=== PATIENT | male | born 1940 | race African-American/Black ===

== ENCOUNTER → 2017-02-11 | Outpatient (CLI) | payer MEDICARE, OTHER ==
[~2017-02-11] MED LIST: ASPERDRINK81 MG PO; ASPIRIN 81M81 MG/TA2 PO; CORDARONE200 MG/TAB PO; COUMADIN5 MG PO; ELIQUIS 5MG PO; KLOR-CON M2020 MEQ PO; LASIX 40MG TABL40 MG PO; LEVAQUIN 750MG750 MG PO; LEVOXYL0.05 MG PO; LIPITOR 40MG TA40 MG PO; LOPRESSOR 225 MG/TAB PO; LOPRESSOR 550 MG/TAB PO; MULTAQ400 MG PO; NITROSTAT0.4 MG/TAB SL; PERCOCET 325 MG1 TA2 PO; PLAVIX 75MG TAB75 MG PO; PRINIVIL10 MG PO; PRINIVIL2.5 MG PO; ULTRAM 50MG TAB50 MG PO
== END ==
LOC: COL.VAS 10:53
DX: I34.0 Nonrheumatic mitral (valve) insufficiency (principal); I38 Endocarditis, valve unspecified; I28.8 Other diseases of pulmonary vessels; I25.10 Atherosclerotic heart disease of native coronary artery without angina pectoris

== ENCOUNTER → 2017-02-17 | Outpatient (CLI) | payer MEDICARE, OTHER | LOC: COL.RAD 13:11 | DX: I51.7 Cardiomegaly (principal); J90 Pleural effusion, not elsewhere classified; Z95.1 Presence of aortocoronary bypass graft | CPT/HCPCS: Q9967 ==

== ENCOUNTER → 2017-03-07 | Outpatient (CLI) | payer MEDICARE, OTHER | LOC: COL.PUL 09:47 | DX: Z51.81 Encounter for therapeutic drug level monitoring (principal); R06.02 Shortness of breath ==

== ENCOUNTER 2017-03-20 07:58 | Day surgery (SDC) | payer MEDICARE, OTHER ==
[~2017-03-20] VITALS: Ht 180.3 cm; Wt 79.5 kg
[2017-03-20] VITALS (14 sets, daily range): BP systolic 116–147; BP diastolic 62–77; PULSE 64–73; TEMP 97.3–98.1
[~2017-03-20 07:58] MED LIST changes: -CORDARONE200 MG/TAB PO; -LEVOXYL0.05 MG PO; -PLAVIX 75MG TAB75 MG PO; -PRINIVIL10 MG PO
[2017-03-20] MEDS ORDERED: CORDARONE200 MG/TAB PO (08:15)
[2017-03-20] MEDS ORDERED: PRINIVIL10 MG PO (08:18)
[2017-03-20] MEDS ORDERED: LEVOXYL0.05 MG PO (08:18)
[2017-03-20 08:40] LABS: MEAN CELL VOLUME 82 fl (80.0-100.0); MEAN CORPUSCULAR HGB CONC 32 g/dl (33.0-37.0); MEAN PLATELET VOLUME 11.1 fl (7.4-10.4); PLATELET COUNT 180 K/mm3 (130-400); RED BLOOD COUNT 3.93 M/mm3 (4.20-5.60); REDCELL DISTRIBUTION WIDTH-CV 16.5 % (11.5-14.5)
[2017-03-20] MEDS ORDERED: PLAVIX 75MG TAB75 MG PO (08:40)
[2017-03-20 08:41] LABS: HEMATOCRIT 32.4 % (42.0-52.0); HEMOGLOBIN 10.2 g/dl (13.5-18.0); MEAN CORPUSCULAR HEMOGLOBIN 26 pg (27.0-31.0)
[2017-03-20 08:51] LABS: CALCIUM 9.1 mg/dL (8.4-10.2); CREATININE, serum 1.31 mg/dL (0.66-1.25); POTASSIUM 4.6 mmol/L (3.4-5.0)
[2017-03-20 08:56] LABS: INR 1.1 (0.8-3.0); PROTHROMBIN TIME 12.1 SECONDS (9.7-12.8)
== END 2017-03-20 19:17 | disposition home or self-care (01) ==
LOC: COL.CAR 07:58
PROVIDERS: Internal Medicine Cardiovascular Disease
DX: I25.810 Atherosclerosis of coronary artery bypass graft(s) without angina pectoris (principal); I27.2 Other secondary pulmonary hypertension; I34.0 Nonrheumatic mitral (valve) insufficiency; I48.91 Unspecified atrial fibrillation; E78.5 Hyperlipidemia, unspecified; I25.2 Old myocardial infarction; I10 Essential (primary) hypertension; Z82.49 Family history of ischemic heart disease and other diseases of the circulatory system; Z79.01 Long term (current) use of anticoagulants; E03.9 Hypothyroidism, unspecified; Z87.891 Personal history of nicotine dependence; I48.92 Unspecified atrial flutter; J44.9 Chronic obstructive pulmonary disease, unspecified; M19.90 Unspecified osteoarthritis, unspecified site; D64.9 Anemia, unspecified; Z95.1 Presence of aortocoronary bypass graft
CPT/HCPCS: C1725; C1769; J0330; J2250; J2704; J3010; J7120; Q9967

== ENCOUNTER 2017-07-11 21:50 | Inpatient (IN) | payer MEDICARE, OTHER ==
[~2017-07-11] VITALS: Ht 180.3 cm; Wt 75.0 kg
[~2017-07-11 21:50] MED LIST changes: +CORDARONE200 MG/TAB PO; +LEVOXYL0.05 MG PO; +PLAVIX 75MG TAB75 MG PO; +PRINIVIL10 MG PO
[2017-07-11] MEDS ORDERED: PROTONIX 40MG T40 MG PO (22:37)
[2017-07-11] MEDS ORDERED: LOPRESSOR 225 MG/TAB PO (22:37)
[2017-07-11 22:42] LABS: BASO % 0.4 % (0.0-2.0); EOS # 0.1 (0.0-0.7); EOS % 1.3 % (0-4.0); GRAN # 3.3 (1.4-6.5); LYMPH # 0.6 (1.2-3.4); LYMPH % 12.2 % (20.0-51.0); MEAN CELL VOLUME 82 fl (80.0-100.0); MEAN CORPUSCULAR HGB CONC 31 g/dl (33.0-37.0); MEAN PLATELET VOLUME 10.9 fl (7.4-10.4); MONO # 0.6 (0.1-0.6); MONO % 13.7 % (1.7-9.3); PLATELET COUNT 116 K/mm3 (130-400); RED BLOOD COUNT 3.35 M/mm3 (4.20-5.60); WHITE BLOOD COUNT 4.5 K/mm3 (4.8-10.8)
[2017-07-11 22:53] LABS: ALBUMIN 3.6 gm/dL (3.5-5.0); BILIRUBIN,TOTAL 0.7 mg/dL (0.0-1.0); CALCIUM 8.7 mg/dL (8.4-10.2); CREATININE, serum 1.98 mg/dL (0.66-1.25); POTASSIUM 4.8 mmol/L (3.4-5.0); TOTAL PROTEIN 7.6 gm/dL (6.4-8.2)
[2017-07-11 22:54] LABS: HEMATOCRIT 27.6 % (42.0-52.0); HEMOGLOBIN 8.5 g/dl (13.5-18.0); MEAN CORPUSCULAR HEMOGLOBIN 25 pg (27.0-31.0)
[2017-07-11 23:08] LABS: TROPONIN-I 0.082 ng/mL (0.000-0.034)
[2017-07-11 23:09] LABS: INR 1.1 (0.8-3.0); PROTHROMBIN TIME 12.5 SECONDS (9.7-12.8)
[2017-07-11 23:11] LABS: PARTIAL THROMBOPLASTIN TIME 30.8 SECONDS (26.0-37.0)
[2017-07-12] VITALS (516 sets, daily range): BP systolic 105–137; BP diastolic 51–68; PULSE 59–67; TEMP 97–97.8; O2SAT 89–100
[2017-07-12 05:55] LABS: BASO % 0.5 % (0.0-2.0); EOS # 0.1 (0.0-0.7); GRAN # 2.7 (1.4-6.5); GRAN % 66.6 % (42.2-75.2); LYMPH # 0.7 (1.2-3.4); LYMPH % 17.4 % (20.0-51.0); MEAN CELL VOLUME 83 fl (80.0-100.0); MEAN CORPUSCULAR HGB CONC 31 g/dl (33.0-37.0); MEAN PLATELET VOLUME 11.5 fl (7.4-10.4); MONO # 0.5 (0.1-0.6); PLATELET COUNT 117 K/mm3 (130-400); RED BLOOD COUNT 3.27 M/mm3 (4.20-5.60); RETIC % 2.5 % (0.5-3.52); WHITE BLOOD COUNT 4.1 K/mm3 (4.8-10.8)
[2017-07-12 05:57] LABS: HEMATOCRIT 27.2 % (42.0-52.0); HEMOGLOBIN 8.3 g/dl (13.5-18.0); MEAN CORPUSCULAR HEMOGLOBIN 25 pg (27.0-31.0)
[2017-07-12 06:01] LABS: CALCIUM 8.6 mg/dL (8.4-10.2); CREATININE, serum 1.69 mg/dL (0.66-1.25); POTASSIUM 4.5 mmol/L (3.4-5.0)
[2017-07-12 06:20] LABS: TROPONIN-I 0.062 ng/mL (0.000-0.034)
== END 2017-07-12 12:20 | disposition home or self-care (01) | DRG 309 ==
LOC: COL.ER 21:50 → ICU 23:40
PROVIDERS: Emergency Medicine; Nurse Practitioner
DX: R00.1 Bradycardia, unspecified (principal); N17.9 Acute kidney failure, unspecified; I50.32 Chronic diastolic (congestive) heart failure; I48.91 Unspecified atrial fibrillation; I11.0 Hypertensive heart disease with heart failure; I48.92 Unspecified atrial flutter; I27.22 Pulmonary hypertension due to left heart disease; I25.10 Atherosclerotic heart disease of native coronary artery without angina pectoris; Z95.1 Presence of aortocoronary bypass graft; Z87.891 Personal history of nicotine dependence; D64.9 Anemia, unspecified; Z95.5 Presence of coronary angioplasty implant and graft
CPT/HCPCS: 99223-AI; J1644; J7030

== ENCOUNTER 2017-09-16 11:00 | Outpatient (RCR) | payer MEDICARE, OTHER ==
[2017-09-16] VITALS (10 sets, daily range): BP systolic 105–158; BP diastolic 45–67; PULSE 56–69; TEMP 97.9–98.4
[~2017-09-16] VITALS: Ht 180.3 cm; Wt 77.2 kg
[~2017-09-16 11:00] MED LIST changes: +PROTONIX 40MG T40 MG PO
== END 2017-09-16 17:35 | disposition home or self-care (01) ==
LOC: EUO 11:00
PROVIDERS: Emergency Medicine
DX: D50.0 Iron deficiency anemia secondary to blood loss (chronic) (principal); Z95.1 Presence of aortocoronary bypass graft; Z98.890 Other specified postprocedural states; Z87.891 Personal history of nicotine dependence
CPT/HCPCS: J7050; P9016

== ENCOUNTER 2020-06-18 06:31 | Inpatient (IN) | payer MEDICARE ==
[~2020-06-18] VITALS: Ht 180.3 cm; Wt 79.4 kg
[~2020-06-18 06:31] MED LIST changes: +LIPITOR 80MG80 MG PO
[2020-06-18 06:59] LABS: BASO % 0.9 % (0.0-2.0); EOS # 0.1 (0.0-0.7); EOS % 2.5 % (0-4.0); GRAN % 65.9 % (42.2-75.2); HEMATOCRIT 37.4 % (42.0-52.0); HEMOGLOBIN 11.7 g/dl (13.5-18.0); LYMPH # 0.9 (1.2-3.4); LYMPH % 19.4 % (20.0-51.0); MEAN CELL VOLUME 85 fl (80.0-100.0); MEAN CORPUSCULAR HEMOGLOBIN 27 pg (27.0-31.0); MEAN CORPUSCULAR HGB CONC 31 g/dl (33.0-37.0); MEAN PLATELET VOLUME 12.1 fl (7.4-10.4); MONO # 0.5 (0.1-0.6); MONO % 10.9 % (1.7-9.3); PLATELET COUNT 137 K/mm3 (130-400)
[2020-06-18 07:13] LABS: INR 1.1 (0.8-3.0); PROTHROMBIN TIME 12.8 SECONDS (9.7-12.8)
[2020-06-18 07:15] LABS: PARTIAL THROMBOPLASTIN TIME 33.5 SECONDS (26.0-37.0)
[2020-06-18 07:17] LABS: ALBUMIN 4.1 gm/dL (3.5-5.0); BILIRUBIN,TOTAL 1.6 mg/dL (0.0-1.0); CALCIUM 9.2 mg/dL (8.4-10.2); CREATININE, serum 1.34 (0.66-1.25); MAGNESIUM 1.9 mg/dL (1.6-2.3); POTASSIUM 4.3 mmol/L (3.4-5.0); TOTAL PROTEIN 7.7 gm/dL (6.4-8.2)
[2020-06-18 07:30] LABS: TROPONIN-I 0.106 ng/mL (0.000-0.035)
[2020-06-18 10:55] VITALS: BP 129/72; PULSE 80; TEMP 97.5
--- NOTE | 2020-06-18 11:21 | NUR ---
PT ADMITTED TO UNIT @ 1050. AOX4. DENIES PAIN. INDEPENDENT STEADY AMBULATION. ORDERS REVIEWED. STATES HE ALREADY TOOK HIS AM MEDS THUS SKIPPED. ON TELE. DENIES CHEST PAIN. ABLE TO MAKE NEEDS KNOWN. 89% ON RA THUS PLACED ON 1L NC. EDEMA 3+ RLE AND 2+ LLE NOTED. LUNG SOUNDS DIMINSHED. SEEN BY DR SANTILLAN AND PLAN FOR ECHO AND STRES TEST TOMORROW. PT EDUCATED ON CAFFEINE INTAKE AND NPO STATUS DUE TO PROCEDURE. PT LATER REPORTS HX OF AFIB WITH CARDIOVERSION.
--- NOTE | 2020-06-18 13:18 | NUR ---
TROPONINS TRENDIGN TRINY. NEXT DRAW @ 1440. PT DENIES CHEST PAIN
[2020-06-18 16:30] VITALS: BP 134/81; PULSE 68; TEMP 97.3
--- NOTE | 2020-06-18 19:35 | NUR ---
Pt assessment completed and documented. Pt resting in bed at this time talking on his cell phone. Pt alert and oriented x4. Denies pain. INT to right AC CDI. Telemetry on. Pt on 1L O2 via nasal cannula. Pt denies any other needs at this time. Call light within reach. Will continue to monitor
[2020-06-18 20:00] VITALS: BP 132/79; PULSE 72; TEMP 97.8
[2020-06-19] VITALS (11 sets, daily range): BP systolic 125–146; BP diastolic 51–84; PULSE 61–78; TEMP 97.5–98.4
--- NOTE | 2020-06-19 04:00 | NUR ---
Pt up ambulating in room stating that he feels as if his shortness of breath has improved. Pt states that he feels a lot better and is doing more now than what he has been able to do in the last couple weeks. Denies pain or any other needs at this time. Call light within reach.
[2020-06-19 07:32] LABS: BASO % 0.7 % (0.0-2.0); EOS # 0.2 (0.0-0.7); EOS % 4.2 % (0-4.0); GRAN # 2.6 (1.4-6.5); GRAN % 65.5 % (42.2-75.2); LYMPH # 0.7 (1.2-3.4); LYMPH % 16.7 % (20.0-51.0); MEAN CELL VOLUME 84 fl (80.0-100.0); MEAN CORPUSCULAR HEMOGLOBIN 27 pg (27.0-31.0); MEAN CORPUSCULAR HGB CONC 32 g/dl (33.0-37.0); MEAN PLATELET VOLUME 12.7 fl (7.4-10.4); MONO # 0.5 (0.1-0.6); MONO % 12.7 % (1.7-9.3); PLATELET COUNT 125 K/mm3 (130-400); RED BLOOD COUNT 4.12 M/mm3 (4.20-5.60); REDCELL DISTRIBUTION WIDTH-CV 16.8 % (11.5-14.5); RETIC # 0.13 M/mm3 (0.02-0.16); RETIC % 3.2 % (0.5-3.52)
[2020-06-19 07:41] LABS: HEMATOCRIT 34.7 % (42.0-52.0)
[2020-06-19 07:56] LABS: ALBUMIN 3.4 gm/dL (3.5-5.0); BILIRUBIN,TOTAL 1.3 mg/dL (0.0-1.0); CALCIUM 8.6 mg/dL (8.4-10.2); CREATININE, serum 1.41 (0.66-1.25); MAGNESIUM 1.9 mg/dL (1.6-2.3); PHOSPHOROUS 3.3 mg/dL (2.5-4.5); TOTAL PROTEIN 6.7 gm/dL (6.4-8.2)
[2020-06-19 07:57] LABS: IRON,SERUM 52 ug/dL (35-150)
[2020-06-19 08:06] LABS: TOTAL IRON BINDING CAPACITY 288 ug/dL (261-462)
--- NOTE | 2020-06-19 11:26 | NUR ---
Pt assessment completed and charted. Medications administered per NOV. Pt A&O, independent in room, on room air at this time, 1-2L NC PRN. Pt states he has some SOB but has improved since arriving. Breathing is even and unlabored, UL bilaterally clear, bases bilaterally fine crackles. Heart RRR, denies chest pain, dizziness, n/v/d, abdominal pain. Pulses strong bilaterally. RLE edema 2+, LLE edema 1+. POC discussed w/ cardiology, pt ok to eat today, possible heart cath for tomorrow (06/20). RAC INT IV flushes w/o difficulty. No further needs at this time.
--- NOTE | 2020-06-19 14:20 | NUR ---
Pt doing well, requesting to shower. Set up for that. Pt to have CORTEZ tomorrow 06/20, consent signed and on chart. All questions answered, no further needs.
--- NOTE | 2020-06-19 15:06 | NUR ---
SW met with the patient to discuss discharge plan. The patient lives in [place] with his , Yuko (ph#[phone]). He reports independence with ADLs and does not have any DME. The patient's PCP is Dr. Marshall Lazo and he receives his medications through [facility] in [place]. He reports no difficulties obtaining his meds. The patient does not have advance directives and he was not interested in completing a DPOA-HC at this time. The patient plans to return home with his upon discharge. SW discussed home health services to provide education and assistance with new onset CHF. The patient reports that he is not interested in any home health at this time. AMADA contacted and reviewed d/c plan with the patient's , Yuko. Yuko had no concerns for SW with the patient returning back home with her. No additional needs at this time.
--- NOTE | 2020-06-19 20:11 | NUR ---
Pt assessment completed and documented. Pt resting in bed at this time playing games on his cellphone. Denies pain. INT to right AC CDI. CASI Aranda notified of telemetry reporting pt having bigeminal PVCs. Mag and BMP ordered with orders to call her back when results are in computer. Lab just left room prior to RN giving HS medications. Pt denies any other needs at this time. Call light within reach. Will continue to monitor
[2020-06-19 20:23] LABS: CALCIUM 8.4 mg/dL (8.4-10.2); CREATININE, serum 1.48 (0.66-1.25); MAGNESIUM 1.9 mg/dL (1.6-2.3); POTASSIUM 3.7 mmol/L (3.4-5.0)
[2020-06-19 20:30] LABS: FOLATE (FOLIC ACID) 8.8 ng/mL (7.0-31.4)
[2020-06-20] VITALS (9 sets, daily range): BP systolic 105–147; BP diastolic 56–77; PULSE 56–67; TEMP 97.5–98.5
--- NOTE | 2020-06-20 04:55 | NUR ---
Pt currently resting in bed. No complaints of pain overnight. Telemetry on. INT to right AC CDI. Magnesium and potassium replaced overnight per orders from CASI Aranda. Pt denies any other needs at this time. Call light within reach
[2020-06-20 07:24] LABS: INR 1.1 (0.8-3.0); PROTHROMBIN TIME 12.1 SECONDS (9.7-12.8)
[2020-06-20 07:27] LABS: BASO % 1.1 % (0.0-2.0); EOS # 0.2 (0.0-0.7); EOS % 4.4 % (0-4.0); GRAN # 2.3 (1.4-6.5); GRAN % 61.4 % (42.2-75.2); HEMOGLOBIN 11.3 g/dl (13.5-18.0); LYMPH # 0.8 (1.2-3.4); LYMPH % 20.5 % (20.0-51.0); MEAN CELL VOLUME 84 fl (80.0-100.0); MEAN CORPUSCULAR HEMOGLOBIN 27 pg (27.0-31.0); MEAN CORPUSCULAR HGB CONC 32 g/dl (33.0-37.0); MEAN PLATELET VOLUME 12.1 fl (7.4-10.4); MONO # 0.5 (0.1-0.6); MONO % 12.3 % (1.7-9.3); PLATELET COUNT 137 K/mm3 (130-400); RED BLOOD COUNT 4.24 M/mm3 (4.20-5.60); REDCELL DISTRIBUTION WIDTH-CV 16.8 % (11.5-14.5)
[2020-06-20 07:32] LABS: CALCIUM 8.5 mg/dL (8.4-10.2); CREATININE, serum 1.26 (0.66-1.25); HEMATOCRIT 35.6 % (42.0-52.0); POTASSIUM 4.4 mmol/L (3.4-5.0)
--- NOTE | 2020-06-20 09:14 | NUR ---
Pt down for CORTEZ procedure at this time by KIM w/ Ashlyn, no issues noted.
--- NOTE | 2020-06-20 12:08 | NUR ---
Pt back from CORTEZ procedure, A&O, feeling "weak", VSS, bradycardic, some dizziness on transport to bed per JESÚS Goldberg. Pt resting in bed at this time, provided w/ water and post op monitoring in progress.
--- NOTE | 2020-06-20 14:46 | NUR ---
Met with pt and his . They reported that they had not talked to anyone regarding pt's new diagnosis of CHF yet. CHF binder at bedside. Pt and agreeable to speak with this CM regarding CHF. Briefly discussed CHF diagnosis information. Discussed weight monitoring and other symptoms to watch for. Pt reports that he has never had any trouble with his weight. Discussed the importance of watching for increase LE edema, shortness of breath and increased use of pillows at bedtime. Pt verbalized understanding. Discussed the importance of taking his new medications as prescribed. Should pt and how they can use the CHF binder to keep track of weight, medications, and appointments. Touched on diet recommendations as well as increasing activity gradually. Pt admits that that with COVID they have not been exercising like they used to and now he becomes winded with exertion. Pt and verbalized understanding of teaching and denied any further questions or concerns. CM phone # provided in case they came up with questions. Pt agreeable to have CM f/u with him after discharge.
--- NOTE | 2020-06-20 15:00 | NUR ---
Pt requestin gto shower. IV wrapped, tele called to inform them leads off. Extra towels provided. No further needs.
--- NOTE | 2020-06-20 19:39 | NUR ---
Pt doing well today, CORTEZ procedure done. Meds administered after procedure. Pt denied pain, abdominal pain, SOB, N/V/D. HR has been rufino occasionally, appears asymptomatic. LE edema improving on lasix. Pt on room air, breathing is even and unlabored. No further needs. Consent signed and on chart for tomorrow heart cath. Report given to JESÚS Mendez.
--- NOTE | 2020-06-20 20:30 | NUR ---
Initial shift assessment done- denies pain-- did sign consent for heart cath tomorrow,, will be NPO after MN, Tele on, pt has just trace lower extremity edema-
[2020-06-21] VITALS (15 sets, daily range): BP systolic 120–165; BP diastolic 50–91; PULSE 58–74; TEMP 96.8–98.2
--- NOTE | 2020-06-21 06:00 | NUR ---
Quiet night- has been NPO since MN,, did get his morning aspirin per orders before heart cath- denies any CP/SOB
[2020-06-21 07:15] LABS: BASO % 1.2 % (0.0-2.0); EOS # 0.2 (0.0-0.7); EOS % 5.2 % (0-4.0); GRAN % 58.7 % (42.2-75.2); HEMOGLOBIN 11.6 g/dl (13.5-18.0); LYMPH # 0.7 (1.2-3.4); LYMPH % 20.6 % (20.0-51.0); MEAN CELL VOLUME 84 fl (80.0-100.0); MEAN CORPUSCULAR HEMOGLOBIN 27 pg (27.0-31.0); MEAN CORPUSCULAR HGB CONC 32 g/dl (33.0-37.0); MEAN PLATELET VOLUME 11.7 fl (7.4-10.4); MONO # 0.5 (0.1-0.6); MONO % 13.7 % (1.7-9.3); PLATELET COUNT 144 K/mm3 (130-400); RED BLOOD COUNT 4.34 M/mm3 (4.20-5.60); REDCELL DISTRIBUTION WIDTH-CV 16.9 % (11.5-14.5)
[2020-06-21 07:19] LABS: HEMATOCRIT 36.4 % (42.0-52.0)
[2020-06-21 07:21] LABS: INR 1.1 (0.8-3.0)
[2020-06-21 07:26] LABS: ALBUMIN 3.4 gm/dL (3.5-5.0); CALCIUM 8.8 mg/dL (8.4-10.2); CREATININE, serum 1.27 (0.66-1.25); MAGNESIUM 2.1 mg/dL (1.6-2.3); POTASSIUM 4.2 mmol/L (3.4-5.0); TOTAL PROTEIN 6.8 gm/dL (6.4-8.2)
--- NOTE | 2020-06-21 11:41 | NUR ---
First visit from the student accounts manager. No needs right now.
--- NOTE | 2020-06-21 14:17 | NUR ---
PATIENT IS RESTING IN BED, RECEIVED CALL FROM DATA SCIENCES DIRECTOR WITH REPORT THAT PATIENT WOULD BE GOING DOWN FOR CARDIAC CATH AT 1430, PATIENT IS AWARE.
--- NOTE | 2020-06-21 15:30 | NUR ---
Patient taken down for heart cath. Student nurse with the patient.
--- NOTE | 2020-06-21 16:19 | NUR ---
SEE LION FOR ALL MEDICATION ADMINISTRATION AND INTRA AND POST SEDATION ASSESSMENT
--- NOTE | 2020-06-21 18:12 | NUR ---
Patient to room 319 be bed from heart cath. Patient A&Ox4. VSS. IV CDI. RT radial site CDI. RT groin site gauze and tegaderm, CDI. Patient instructed to stay flat for 4 hours and to keep right leg straight. Patient verbalized an understanding. Finger foods ordered for patient by nurse. Post op VS being monitored. No further needs expressed from the patient. Call light within reach. Bed alarm on
--- NOTE | 2020-06-21 19:39 | NUR ---
ATTEMPTED TO REMOVE 5ML AIR OUT FROM RADIAL COMPRESSION BAND WITH INSTANT ACTIVE BLEEDING NOTED. REINSERTED 5ML AIR. SCANT BLOODY DRAINAGE NOTED TO RIGHT FEMORAL SITE NOTED AT BEDSIDE SHIFT REPORT WHICH WAS MARKED AT THAT TIME. DRAIANGE NOW OUTSIDE OF MARKING SINCE BEDSIDE REPORT. SAND BAG APPLIED. CASI SINHA NOTIFIED OF BLEEDING
--- NOTE | 2020-06-21 23:21 | NUR ---
Pt assessment completed and documented. Pt alert and oriented x4. Pt currently resting in bed per orders from Dr. Boss. Pt to be bedrest until tomorrow morning due to bleeding from right femoral heart cath site. 5lb sandbag currently in place to right femoral site per orders with no new drainage seen at this time. Right radial site with compression band on. 8 total mls released at this time from radial band with no new bleeding present. Pt denies pain. IVF infusing per orders to left hand IV site. Pt denies any other needs at this time. Call light within reach. Will continue to monitor.
[2020-06-22 03:37] VITALS: BP 136/83; PULSE 75; TEMP 98.5
--- NOTE | 2020-06-22 05:17 | NUR ---
Pt has remained on bedrest overnight per orders from Dr. Boss due to bleeding at femoral heart cath site. Sandbag removed from femoral site around midnight with no additional bleeding since. Radial compression band removed at this time as well; bandaid applied with no new bleeding. Splint remains on right wrist. No complaints of pain overnight. INT to left hand CDI. Pt eager to get up this AM, however verbalizes understanding that he is to remain on bedrest for now. Pt denies any other needs. Call light within reach
[2020-06-22 07:42] VITALS: BP 142/74; PULSE 78; TEMP 97.4
[2020-06-22 09:11] LABS: EOS # 0.1 (0.0-0.7); EOS % 2.8 % (0-4.0); GRAN # 2.6 (1.4-6.5); GRAN % 66.9 % (42.2-75.2); HEMATOCRIT 39.7 % (42.0-52.0); HEMOGLOBIN 12.7 g/dl (13.5-18.0); LYMPH # 0.6 (1.2-3.4); MEAN CELL VOLUME 84 fl (80.0-100.0); MEAN CORPUSCULAR HEMOGLOBIN 27 pg (27.0-31.0); MEAN CORPUSCULAR HGB CONC 32 g/dl (33.0-37.0); MEAN PLATELET VOLUME 11.6 fl (7.4-10.4); MONO # 0.5 (0.1-0.6); PLATELET COUNT 151 K/mm3 (130-400); RED BLOOD COUNT 4.75 M/mm3 (4.20-5.60); REDCELL DISTRIBUTION WIDTH-CV 16.9 % (11.5-14.5)
[2020-06-22 09:20] LABS: CALCIUM 8.9 mg/dL (8.4-10.2); CREATININE, serum 1.16 (0.66-1.25); POTASSIUM 4.3 mmol/L (3.4-5.0)
--- NOTE | 2020-06-22 11:48 | NUR ---
SPOKE WITH DR. GIANG AT 0730 REGARDING GETTING OFF BEDREST. NOTIFIED HIM THE CONDITION OF THE FEMORAL DRESSING SITE AND HE STATED HE WOULD BE ABLE TO GET OUT OF BED AND AMBULATE. PATIENT WAS PLEASED WITH THIS. HE STATED HE HAD SLIGHT PAIN IN HIS KNEES DUE TO STIFFNESS AND DID ACCEPT SOME OFFERED APAP. NO OTHER NEEDS VERBALIZED. CALL LIGHT IS WITHIN REACH.
[2020-06-22] MEDS ORDERED: NORVASC 5MG5 MG/TAB PO (12:25)
[2020-06-22] MEDS ORDERED: DEMADEX 20MG20 M1 PO (12:25)
--- NOTE | 2020-06-22 12:48 | NUR ---
Puttier met with patient who will discharge home today. SW again discussed home health services with patient who declined. Patient's , Yuko is at bedside and will take patient home today. SW read IM form aloud to patient who verbalized understanding and gave SW permission to sign on his behalf. SW placed form in chart and provided copy to patient. No additional needs at this time.
[2020-06-22 13:24] VITALS: BP 126/48; PULSE 64; TEMP 97.7
--- NOTE | 2020-06-22 14:16 | NUR ---
PATIENT DISCHARGED HOME AT 1400, WAS ACCOMPANIED BY . DISCHARGE INSTRUCTIONS PROVIDED, DECLINED TO GO THROUGHT THEM HE HAS RECEIVED A LOT OF EDUCATION DURING HIS STAY. HE STATES HE WILL READ OVER THE MEDICATION INFORMATION WHEN HE GETS HOME. PERSONAL BELONGINGS WITH PATIENT.
== END 2020-06-22 14:00 | disposition home or self-care (01) | DRG 280 ==
LOC: COL.ER 06:31 → MEDICAL 08:08
PROVIDERS: Emergency Medicine; Nurse Practitioner Family; Physician Assistant; ADMIT Family Medicine
PROC: 4A023N8 Measurement of Cardiac Sampling and Pressure, Bilateral, Percutaneous Approach (ICD-10-PCS; principal; 2020-06-22)
PROC: B2111ZZ Fluoroscopy of Multiple Coronary Arteries using Low Osmolar Contrast (ICD-10-PCS; 2020-06-22)
DX: I11.0 Hypertensive heart disease with heart failure (principal); I21.4 Non-ST elevation (NSTEMI) myocardial infarction; J96.01 Acute respiratory failure with hypoxia; N17.9 Acute kidney failure, unspecified; I25.10 Atherosclerotic heart disease of native coronary artery without angina pectoris; I48.91 Unspecified atrial fibrillation; K21.9 Gastro-esophageal reflux disease without esophagitis; D64.9 Anemia, unspecified; E03.9 Hypothyroidism, unspecified; I05.0 Rheumatic mitral stenosis; D69.6 Thrombocytopenia, unspecified; R00.1 Bradycardia, unspecified; I27.20 Pulmonary hypertension, unspecified; Z87.891 Personal history of nicotine dependence; Z95.1 Presence of aortocoronary bypass graft; Z20.828 Contact with and (suspected) exposure to other viral communicable diseases
CPT/HCPCS: 99222-AI; 99231-AI; 99232-AI; 99239; A9500; J1644; J1940; J2250; J2704; J2785; J3010; J3475; J7120

== ENCOUNTER 2021-06-15 10:14 | Emergency (ER) | payer MEDICARE ==
[~2021-06-15] VITALS: Ht 180.3 cm; Wt 75.0 kg
[~2021-06-15 10:14] MED LIST changes: +DEMADEX 20MG20 M1 PO; +NORVASC 5MG5 MG/TAB PO
[2021-06-15 10:23] VITALS: TEMP 97
[2021-06-15 11:01] LABS: COLLECTION METHOD CLEAN CATCH
[2021-06-15 11:03] LABS: BASO % 0.7 % (0.0-2.0); EOS # 0.1 (0.0-0.7); EOS % 1.1 % (0-4.0); GRAN # 3.3 (1.4-6.5); HEMOGLOBIN 13.9 g/dl (13.5-18.0); LYMPH # 0.6 (1.2-3.4); LYMPH % 13.4 % (20.0-51.0); MEAN CELL VOLUME 83 fl (80.0-100.0); MEAN CORPUSCULAR HEMOGLOBIN 26 pg (27.0-31.0); MEAN CORPUSCULAR HGB CONC 32 g/dl (33.0-37.0); MEAN PLATELET VOLUME 11.9 fl (7.4-10.4); MONO # 0.4 (0.1-0.6); MONO % 9.3 % (1.7-9.3); PLATELET COUNT 177 K/mm3 (130-400); RED BLOOD COUNT 5.29 M/mm3 (4.20-5.60)
[2021-06-15 11:12] LABS: MUCOUS Present /lpf; PH 5 (5-8); URINE APPEARANCE Hazy; URINE BACTERIA None Seen /hpf; URINE BILIRUBIN Negative (NEGATIVE); URINE BLOOD 1+ (NEGATIVE); URINE COLOR Amber; URINE GLUCOSE Negative (NEGATIVE); URINE KETONE Negative (NEGATIVE); URINE LEUKOCYTE ESTERASE Negative (NEGATIVE); URINE NITRATE Negative (NEGATIVE); URINE PROTEIN(semi-quant) 3+ (NEGATIVE); URINE UROBILINOGEN Negative (NEGATIVE)
[2021-06-15 11:19] LABS: ALBUMIN 4.3 gm/dL (3.5-5.0); BILIRUBIN,TOTAL 1.1 mg/dL (0.0-1.0); CALCIUM 9.4 mg/dL (8.4-10.2); CREATININE, serum 1.35 (0.66-1.25); POTASSIUM 4.5 mmol/L (3.4-5.0); TOTAL PROTEIN 8.7 gm/dL (6.4-8.2)
[2021-06-15] MEDS ORDERED: OMNICEF 300MG300 MG PO (17:13)
[2021-06-15] MEDS ORDERED: NORCO 325 MG-51 TAB PO (17:14)
[2021-06-15 17:42] VITALS: BP 157/80; PULSE 54
== END 2021-06-15 17:47 | disposition home or self-care (01) ==
LOC: COL.ER 10:14
PROVIDERS: Nurse Practitioner Family
DX: N17.9 Acute kidney failure, unspecified (principal); I25.10 Atherosclerotic heart disease of native coronary artery without angina pectoris; K55.069 Acute infarction of intestine, part and extent unspecified; I70.1 Atherosclerosis of renal artery; N39.0 Urinary tract infection, site not specified; K21.9 Gastro-esophageal reflux disease without esophagitis; I10 Essential (primary) hypertension; E07.9 Disorder of thyroid, unspecified; Z79.899 Other long term (current) drug therapy; Z79.890 Hormone replacement therapy; Z79.82 Long term (current) use of aspirin; Z79.02 Long term (current) use of antithrombotics/antiplatelets
CPT/HCPCS: J0696; J1885; J2405; J7030; Q9967

== ENCOUNTER 2021-06-29 06:08 | Day surgery (SDC) | payer MEDICARE ==
[2021-06-29] VITALS (8 sets, daily range): BP systolic 138–158; BP diastolic 59–72; PULSE 58–71; TEMP 97.4–98.2
[~2021-06-29 06:08] MED LIST changes: +NORCO 325 MG-51 TAB PO; +OMNICEF 300MG300 MG PO
[2021-06-29 07:08] LABS: HEMOGLOBIN 11.8 g/dl (13.5-18.0); MEAN CELL VOLUME 83 fl (80.0-100.0); MEAN CORPUSCULAR HEMOGLOBIN 27 pg (27.0-31.0); MEAN CORPUSCULAR HGB CONC 32 g/dl (33.0-37.0); MEAN PLATELET VOLUME 10.5 fl (7.4-10.4); PLATELET COUNT 121 K/mm3 (130-400); RED BLOOD COUNT 4.42 M/mm3 (4.20-5.60); REDCELL DISTRIBUTION WIDTH-CV 16.4 % (11.5-14.5)
[2021-06-29 07:12] LABS: HEMATOCRIT 36.7 % (42.0-52.0)
[2021-06-29 07:13] LABS: INR 1.1 (0.8-3.0); PROTHROMBIN TIME 12.6 SECONDS (9.7-12.8)
[2021-06-29 07:21] LABS: CALCIUM 8.8 mg/dL (8.4-10.2); CREATININE, serum 1.48 mg/dL (0.72-1.25); POTASSIUM 4.2 mmol/L (3.5-4.5)
--- NOTE | 2021-06-29 07:32 | NUR ---
IV STARTED BY THIS RN ON 1ST ATTEMPT, AFTER BEING ATTEMPTED BY STUDENT. 20G TO LFA, LAB DRAWN AND SENT.
--- NOTE | 2021-06-29 08:30 | NUR ---
Pt to procedure,report to Denise Gray.
--- NOTE | 2021-06-29 11:15 | NUR ---
Pt arrives to medical unit rm [id number] from mine laborer via bed accompanied by JESÚS Gray. Pt awake and drowsy, reports slight pain to left chest site 6 out of 10. Dressing over site CDI and ice pack put in place. IVF's infusing by gravity to left AC site without s/s of complications. Immobilizer to left upper ext and POC reviewed with pt regarding bedrest and ext restrictions. Urinal provided. VSS. Call light in reach.
[2021-06-29] MEDS ORDERED: CEPHALEXIN500 M1 PO (15:28)
--- NOTE | 2021-06-29 16:30 | NUR ---
Pt reports IV pain medication worked for a short time, but soreness has returned, not as bad as initial pain, now 5 out of 10. Provider notified and asked for change in pain medication. See orders.
--- NOTE | 2021-06-29 20:00 | NUR ---
Assessment complete. Patient is alert and oriented with complaints of pain 2/10 in pacemaker insertion site; will administered PRN pain meds when time. Left chest pacemaker site is CDI with no signs of hematoma. Left arm in sling. Comfort measures provided and call light in reach.
[2021-06-30 00:21] VITALS: BP 140/59; PULSE 61; TEMP 97.8
[2021-06-30 03:47] VITALS: BP 132/63; PULSE 62; TEMP 97.5
--- NOTE | 2021-06-30 06:58 | NUR ---
Bedside shift report complete, report received from JESÚS Truong. Pt. resting in bed, awake. Pt. denies needs at this time, call light and belongings in reach.
[2021-06-30 07:11] LABS: BASO % 0.4 % (0.0-2.0); EOS # 0.2 (0.0-0.7); EOS % 3.3 % (0-4.0); GRAN # 3.4 (1.4-6.5); GRAN % 74.8 % (42.2-75.2); HEMOGLOBIN 11.4 g/dl (13.5-18.0); LYMPH # 0.5 (1.2-3.4); LYMPH % 11.5 % (20.0-51.0); MEAN CELL VOLUME 82 fl (80.0-100.0); MEAN CORPUSCULAR HEMOGLOBIN 27 pg (27.0-31.0); MEAN CORPUSCULAR HGB CONC 32 g/dl (33.0-37.0); MEAN PLATELET VOLUME 11.6 fl (7.4-10.4); MONO # 0.5 (0.1-0.6); MONO % 9.8 % (1.7-9.3); PLATELET COUNT 100 K/mm3 (130-400); RED BLOOD COUNT 4.31 M/mm3 (4.20-5.60)
[2021-06-30 07:18] LABS: HEMATOCRIT 35.5 % (42.0-52.0)
[2021-06-30 07:29] LABS: CALCIUM 8.6 mg/dL (8.4-10.2); CREATININE, serum 1.17 mg/dL (0.72-1.25); POTASSIUM 4.6 mmol/L (3.5-4.5)
[2021-06-30 08:02] VITALS: BP 149/65; PULSE 85; TEMP 97.6
--- NOTE | 2021-06-30 11:13 | NUR ---
Plan is to return home in [place] with Yuko . Patient reports that his PCP is Dr. Bayron Meadows who replaced Dr. Lazo. Patient reports that she also sees Dr. Boss. Patient reports that he is independent and does not usually need any assistance. Patient has a pacemaker placed, but denies any other DME EQP. Patient reports that his spse supports care and she will provide transportation upon DC. Educated patient on care supports for care managment.
--- NOTE | 2021-06-30 11:38 | NUR ---
Pt. progressing w/ plan of care. Dr. Pruitt in to see pt. this AM. Plan for pt. to be discharged if x-ray is WNL. Discount card for elliquis provided for pt. from the pharmacy. Pt. agreeable w/ plan of care, needs addressed. Call light in reach.
[2021-06-30] MEDS ORDERED: PRINIVIL5 MG PO (11:44)
[2021-06-30] MEDS ORDERED: COREG 6.256.25 MG/TA PO (11:44)
[2021-06-30] MEDS ORDERED: ELIQUIS 5MG PO (11:44)
--- NOTE | 2021-06-30 14:15 | NUR ---
Pt. discharged home. IV removed, site c/d/i. Pt. verbalized understanding of discharge instructions. Pt. agreeable to follow up with engineer remote control diesel and PCP upon discharge. All questions answered. Pt. left floor w/ hospital staff member
== END 2021-06-30 15:48 ==
LOC: COL.CAR 06:08 → MEDICAL 12:00 → COL.CAR 06-30 15:48
PROVIDERS: Internal Medicine Cardiovascular Disease
DX: I25.5 Ischemic cardiomyopathy (principal); I50.22 Chronic systolic (congestive) heart failure; I25.10 Atherosclerotic heart disease of native coronary artery without angina pectoris; I99.8 Other disorder of circulatory system; Z20.822 Contact with and (suspected) exposure to COVID-19
CPT/HCPCS: OP; C1769; C1777; C1882; C1894; C1898; C1900; J0690; J1885; J2250; J3010; Q9967

== ENCOUNTER → 2021-07-13 | Outpatient (CLI) | payer MEDICARE ==
[~2021-07-13] MED LIST changes: +CEPHALEXIN500 M1 PO; +COREG 6.256.25 MG/TA PO; +PACERONE400 MG PO; +PRINIVIL5 MG PO; +SYNTHROID0.05 MG/TA PO; +ZESTRIL 5MG5 MG PO
[2021-07-13 07:39] LABS: CALCIUM 9.3 mg/dL (8.4-10.2); CREATININE, serum 1.24 mg/dL (0.72-1.25); POTASSIUM 4.4 mmol/L (3.5-4.5)
== END ==
LOC: COL.LAB 07:04
PROVIDERS: Internal Medicine Adult Congenital Heart Disease
DX: N17.9 Acute kidney failure, unspecified (principal)

== ENCOUNTER 2021-08-07 07:51 | Day surgery (SDC) | payer MEDICARE ==
[~2021-08-07] VITALS: Ht 180.3 cm; Wt 76.4 kg
[~2021-08-07 07:51] MED LIST changes: -PACERONE400 MG PO; -SYNTHROID0.05 MG/TA PO; -ZESTRIL 5MG5 MG PO
[2021-08-07 08:50] LABS: MEAN CELL VOLUME 88 fl (80.0-100.0); MEAN CORPUSCULAR HEMOGLOBIN 27 pg (27.0-31.0); MEAN CORPUSCULAR HGB CONC 31 g/dl (33.0-37.0); MEAN PLATELET VOLUME 11.2 fl (7.4-10.4); PLATELET COUNT 145 K/mm3 (130-400); REDCELL DISTRIBUTION WIDTH-CV 17.1 % (11.5-14.5)
[2021-08-07] MEDS ORDERED: COREG 6.256.25 MG/TA PO (08:58)
[2021-08-07] MEDS ORDERED: SYNTHROID0.05 MG/TA PO (08:58)
[2021-08-07] MEDS ORDERED: ELIQUIS 5MG PO (08:58)
[2021-08-07] MEDS ORDERED: ZESTRIL 5MG5 MG PO (08:59)
[2021-08-07] MEDS ORDERED: PROTONIX 40MG T40 MG PO (09:00)
[2021-08-07] MEDS ORDERED: DEMADEX 20MG20 M1 PO (09:01)
[2021-08-07 09:03] VITALS: BP 134/64; PULSE 64; TEMP 97.4
[2021-08-07 09:03] LABS: INR 1.9 (0.8-3.0); PROTHROMBIN TIME 21.2 SECONDS (9.7-12.8)
[2021-08-07 09:06] LABS: PARTIAL THROMBOPLASTIN TIME 37.1 SECONDS (26.0-37.0)
[2021-08-07 09:09] LABS: CALCIUM 8.8 mg/dL (8.4-10.2); CREATININE, serum 1.3 mg/dL (0.72-1.25); POTASSIUM 4.3 mmol/L (3.5-4.5)
[2021-08-07] MEDS ORDERED: PACERONE400 MG PO (09:17)
[2021-08-07 09:29] LABS: THYROID STIMULATING HORMONE 7.853 uIU/mL (0.350-4.940)
[2021-08-07 09:30] VITALS: BP 120/59; PULSE 69
[2021-08-07 09:33] VITALS: BP 123/63; PULSE 69
[2021-08-07 09:45] VITALS: BP 115/66; PULSE 70
[2021-08-07 10:00] VITALS: BP 134/70; PULSE 71
--- NOTE | 2021-08-07 10:10 | NUR ---
Discharge instructions given to pr.Pt verbalize understanding.
[2021-08-07 10:15] VITALS: BP 136/78; PULSE 70
--- NOTE | 2021-08-07 10:59 | NUR ---
Pt escorted out via wheelchair by this nurse.
== END 2021-08-07 14:12 ==
LOC: COL.CAR 07:51
PROVIDERS: Internal Medicine Cardiovascular Disease
DX: I48.92 Unspecified atrial flutter (principal); I48.0 Paroxysmal atrial fibrillation; I25.5 Ischemic cardiomyopathy; I11.0 Hypertensive heart disease with heart failure; I50.9 Heart failure, unspecified; J44.9 Chronic obstructive pulmonary disease, unspecified; M19.90 Unspecified osteoarthritis, unspecified site; E07.9 Disorder of thyroid, unspecified; E78.5 Hyperlipidemia, unspecified; I38 Endocarditis, valve unspecified; Z95.1 Presence of aortocoronary bypass graft; Z79.890 Hormone replacement therapy; Z79.01 Long term (current) use of anticoagulants; Z79.82 Long term (current) use of aspirin; Z95.0 Presence of cardiac pacemaker; Z79.899 Other long term (current) drug therapy
CPT/HCPCS: J7030

== ENCOUNTER 2021-12-15 14:32 | Inpatient (IN) | payer MEDICARE ==
[~2021-12-15] VITALS: Ht 175.3 cm; Wt 74.4 kg
[~2021-12-15 14:32] MED LIST changes: +PACERONE400 MG PO; +SYNTHROID0.05 MG/TA PO; +ZESTRIL 5MG5 MG PO
[2021-12-15 15:30] LABS: BASO % 0.7 % (0.0-2.0); EOS # 0.1 K/mm3 (0.0-0.7); EOS % 1.7 % (0.0-4.0); GRAN # 2.1 K/mm3 (1.4-6.5); GRAN % 73.3 % (42.2-75.2); HEMOGLOBIN 10.7 g/dl (13.5-18.0); LYMPH # 0.3 K/mm3 (1.2-3.4); LYMPH % 10.8 % (20.0-51.0); MEAN CELL VOLUME 85 fl (80.0-100.0); MEAN CORPUSCULAR HEMOGLOBIN 27 pg (27-31); MEAN CORPUSCULAR HGB CONC 32 g/dl (33.0-37.0); MONO # 0.4 K/mm3 (0.1-0.6); MONO % 13.2 % (1.7-9.3); PLATELET COUNT 81 K/mm3 (130-400); RED BLOOD COUNT 3.98 M/mm3 (4.20-5.60); REDCELL DISTRIBUTION WIDTH-CV 23.8 % (11.5-14.5)
[2021-12-15 15:44] LABS: ALBUMIN 3.5 gm/dL (3.4-4.8); BILIRUBIN,TOTAL 1.7 mg/dL (0.2-1.2); CALCIUM 8.8 mg/dL (8.4-10.2); CREATININE, serum 2.51 mg/dL (0.72-1.25); POTASSIUM 5.1 mmol/L (3.5-4.5); TOTAL PROTEIN 7.4 gm/dL (6.2-8.1)
[2021-12-15] MEDS ORDERED: PACERONE200 MG PO (15:44)
[2021-12-15] MEDS ORDERED: ALDACTONE 25MG25 M1 PO (15:48)
[2021-12-15] MEDS ORDERED: BACTRIM DS 8001 TAB PO (15:50)
[2021-12-15] MEDS ORDERED: VITAMIN D 400400 IU PO (15:51)
[2021-12-15] MEDS ORDERED: VITAMIN D 50,1.25 MG (15:52)
[2021-12-15 16:00] LABS: TROPONIN-I 0.085 ng/mL (0.00-0.033)
[2021-12-15 17:32] LABS: HEMOGLOBIN 10.8 g/dl (13.5-18.0); MEAN CELL VOLUME 87 fl (80.0-100.0); MEAN CORPUSCULAR HEMOGLOBIN 27 pg (27-31); MEAN CORPUSCULAR HGB CONC 31 g/dl (33.0-37.0); PLATELET COUNT 96 K/mm3 (130-400); RED BLOOD COUNT 3.97 M/mm3 (4.20-5.60); REDCELL DISTRIBUTION WIDTH-CV 25.2 % (11.5-14.5)
[2021-12-15 17:39] LABS: INR 1.3 (0.8-3.0); PROTHROMBIN TIME 14.8 SECONDS (9.7-12.8)
[2021-12-15 17:41] LABS: PARTIAL THROMBOPLASTIN TIME 34.3 SECONDS (26.0-37.0)
[2021-12-15 17:46] LABS: HEMATOCRIT 34.6 % (42.0-52.0)
--- NOTE | 2021-12-15 18:08 | NUR ---
PT ARRIVED TO FLOOR, SETTLED IN ROOM, ADDRESSED CALL LIGHT, WARM BLANKET AND ICE WATER PROVIDED, VITALS TAKEN, PT REPORTS SOB WITH EXERTION
[2021-12-15 18:09] VITALS: BP 122/68; PULSE 73; TEMP 97.3
--- NOTE | 2021-12-15 18:26 | NUR ---
CRITICAL TROPONIN REPORTED TO FLOYD CMKNIGHT, NO NEW ORDERS AT THIS TIME
--- NOTE | 2021-12-15 18:32 | NUR ---
CONSULT CALLED TO DR. LOMELI
--- NOTE | 2021-12-15 18:35 | NUR ---
CONSULT CALLED TO DR. SANTILLAN
--- NOTE | 2021-12-15 20:00 | NUR ---
PT IN BED, IS ALERT AND ORIENTED X4. ADMISSION COMPLETED. PT HAS INT TO LEFT WRIST AND HEPARIN GTT AT 10CC/HR TO LEFT AC. WAS GIVEN IV LASIX AND DOSE OF VELTESSA. GAVE PT A URINAL FOR ACCURATE I/0. REVIEWED HOME MED LIST WITH PT AND NOTIFIED MARJORIE BARRIENTOS OF UPDATES.
[2021-12-15 21:00] VITALS: BP 117/63; PULSE 73; TEMP 98.2
--- NOTE | 2021-12-15 23:30 | NUR ---
HEP XA=0.64. RATE ON HEPARIN GTT DECREASED BY 100UNITS. PT RESTING WELL.
[2021-12-15 23:51] VITALS: BP 110/57; PULSE 71; TEMP 97.6
[2021-12-16 03:45] VITALS: BP 113/55; PULSE 75; TEMP 98.5
--- NOTE | 2021-12-16 04:00 | NUR ---
VOIDING PER URINAL, LOWER LEGS WITH 2+ EDEMA. IV HEPARIN CONTINUES.
[2021-12-16 07:32] VITALS: BP 123/64; PULSE 73; TEMP 98.5
--- NOTE | 2021-12-16 08:00 | NUR ---
PATIENT IS A&O AND SITTING UP IN BED WITH BREAKFAST TRAY. VSS ON TELE. DENIES PAIN OR NAUSEA. NOTED SOME DYSPNEA WITH ACTIVITY. PATIENT HAS HX OF PULM HTN, CHF & A-FIB. HEPARIN GTT INFUSING VIA PUMP INTO LEFT AC IV. LEFT WRIST IV TO INT. AM MEDS GIVEN. HEAD TO TOE ASSESSMENT COMPLETED. NOTED LLE +2 EDEMA, RLE +1 EDEMA. POSITIVE PEDAL PULSES BILATERALLY. USING URINAL. TOLERATING AHA DIET. PT/OT CONSULTED. NO OTHER NEEDS AT THIS TIME. CALL LIGHT IN REACH.
--- NOTE | 2021-12-16 08:34 | NUR ---
PATIENT GOING DOWN FOR VQ SCAN VIA WC. OFF FLOOR
--- NOTE | 2021-12-16 09:17 | NUR ---
PATIENT BACK IN ROOM FROM SCAN
--- NOTE | 2021-12-16 11:05 | NUR ---
DR.THAPA LU. SEE NEW ORDERS FOR LASIX GTT TO START SOON.
--- NOTE | 2021-12-16 11:37 | NUR ---
picking table worker met with patient to discuss discharge plan. Patient currently lives at home with his Yuko ([phone]) in [place]. Patient reports that he is fully independent with his ADL's and does not utilize any DME to assist with ambulation. Patient has no oxygen needs at home. PCP is Dr. Bejarano out of and he uses [facility] in for short term medications. Patient's watermaster medications are managed through his [employer] plan and he doesn't pay out of pocket for them. Patient reports that he does not have a DPOA-HC established and is not interested in creating one at this time. His legal NOK would be his , but he does also have a son virginia Gan Jr. who also lives in . Patient is planning on returning home post discharge. Discharge plan: Home * pending PT/OT rec's
[2021-12-16 12:00] VITALS: BP 127/73; PULSE 74; TEMP 97.6
--- NOTE | 2021-12-16 12:30 | NUR ---
HEPXA REQUIRED NO CHANGE TO HEPARIN GTT, SEE MAR.
[2021-12-16 12:42] LABS: BASO % 0.9 % (0.0-2.0); EOS # 0.1 K/mm3 (0.0-0.7); EOS % 2.2 % (0.0-4.0); GRAN # 2.2 K/mm3 (1.4-6.5); GRAN % 67.8 % (42.2-75.2); HEMOGLOBIN 10.3 g/dl (13.5-18.0); LYMPH # 0.4 K/mm3 (1.2-3.4); LYMPH % 13.8 % (20.0-51.0); MEAN CELL VOLUME 85 fl (80.0-100.0); MEAN CORPUSCULAR HEMOGLOBIN 27 pg (27-31); MEAN CORPUSCULAR HGB CONC 32 g/dl (33.0-37.0); MONO # 0.5 K/mm3 (0.1-0.6); MONO % 14.7 % (1.7-9.3); PLATELET COUNT 105 K/mm3 (130-400); RED BLOOD COUNT 3.83 M/mm3 (4.20-5.60); REDCELL DISTRIBUTION WIDTH-CV 23.6 % (11.5-14.5)
[2021-12-16 12:45] LABS: HEMATOCRIT 32.6 % (42.0-52.0)
[2021-12-16 12:53] LABS: CALCIUM 8.5 mg/dL (8.4-10.2); CREATININE, serum 2.56 mg/dL (0.72-1.25); POTASSIUM 4.2 mmol/L (3.5-4.5)
[2021-12-16 15:13] VITALS: BP 125/61; BP 149/88; PULSE 71; PULSE 91; TEMP 97.2; TEMP 98.1
--- NOTE | 2021-12-16 19:23 | NUR ---
Hep Xa at 0.37, no change to hep gtt at this time. Pt. has had 2 wnl. Will recheck in am.
--- NOTE | 2021-12-16 20:40 | NUR ---
Pt. sitting up in bed. Pt. is A&OX3, assessment complete. IV to lt. ac with heparin gtt running per orders. IV to lt. wrist with lasix gtt running per orders. Pt. denies pain or other needs, call light within reach.
[2021-12-16 21:02] VITALS: BP 119/63; PULSE 70; TEMP 97.4
[2021-12-16 23:40] VITALS: BP 101/49; PULSE 75; TEMP 97.9
[2021-12-17 03:19] VITALS: BP 121/69; PULSE 76; TEMP 97.5
[2021-12-17 04:09] LABS: COLLECTION METHOD CLEAN CATCH
[2021-12-17 04:17] LABS: PH 5 (5-8); SQUAMOUS EPITHELIAL None Seen /hpf (0-10); URINE APPEARANCE Clear (CLEAR/HAZY); URINE BACTERIA None Seen /hpf (NONE SEEN); URINE BILIRUBIN Negative (NEGATIVE); URINE BLOOD 1+ (NEGATIVE); URINE COLOR Straw (YELLOW); URINE GLUCOSE Negative (NEGATIVE); URINE KETONE Negative (NEGATIVE); URINE LEUKOCYTE ESTERASE Negative (NEGATIVE); URINE NITRATE Negative (NEGATIVE); URINE PROTEIN(semi-quant) Negative (NEGATIVE); URINE RBC 0-2 /hpf (0-2); URINE UROBILINOGEN Negative (NEGATIVE); URINE WBC 0-2 /hpf (0-2)
[2021-12-17 05:39] LABS: BASO % 1.3 % (0.0-2.0); EOS # 0.1 K/mm3 (0.0-0.7); EOS % 1.6 % (0.0-4.0); GRAN % 65.8 % (42.2-75.2); HEMOGLOBIN 10.2 g/dl (13.5-18.0); LYMPH # 0.5 K/mm3 (1.2-3.4); LYMPH % 15.5 % (20.0-51.0); MEAN CELL VOLUME 84 fl (80.0-100.0); MEAN CORPUSCULAR HEMOGLOBIN 27 pg (27-31); MEAN CORPUSCULAR HGB CONC 32 g/dl (33.0-37.0); MONO # 0.5 K/mm3 (0.1-0.6); MONO % 15.2 % (1.7-9.3); PLATELET COUNT 81 K/mm3 (130-400); RED BLOOD COUNT 3.76 M/mm3 (4.20-5.60); REDCELL DISTRIBUTION WIDTH-CV 23.4 % (11.5-14.5)
[2021-12-17 05:43] LABS: HEMATOCRIT 31.5 % (42.0-52.0)
[2021-12-17 05:49] LABS: ALBUMIN 3.3 gm/dL (3.4-4.8); CREATININE, serum 2.82 mg/dL (0.72-1.25); PHOSPHOROUS 3.8 mg/dL (2.3-4.7); POTASSIUM 4.2 mmol/L (3.5-4.5)
--- NOTE | 2021-12-17 05:52 | NUR ---
Hep Xa unchanged. No change to rate, recheck in the am.
[2021-12-17 08:03] VITALS: BP 126/48; BP 146/68; PULSE 53; PULSE 72; TEMP 98.5
--- NOTE | 2021-12-17 10:17 | NUR ---
PT is recommending that the patient may need post-acute rehab upon discharge. SW attempted to meet with the patient. The patient was sleeping. SW contacted the patient's , Yuko, and reviewed PT's recommendation with her. Yuko is interested in post-acute rehab. She would prefer to stay in [place] and was interested in [facility] or [facility]. She does not have a preference at this time. SW informed Yuko that due to the patient's insurance, Medicare [employer], we will also have to submit for auth for SNF when it gets closer to discharge. Yuko verbalized understanding. SW contacted both facilities. SW student faxed referrals to both facilities. Awaitings screens. *Discharge plan: SNF. Referrals are out*
[2021-12-17 11:59] VITALS: BP 110/51; PULSE 70; TEMP 97.9
--- NOTE | 2021-12-17 13:35 | NUR ---
First visit from the v belt builder. No needs right now.
[2021-12-17 16:07] VITALS: BP 109/63; PULSE 71; TEMP 97.5
--- NOTE | 2021-12-17 17:19 | NUR ---
PT IS IN BED WITH HOB ELEVATED. IV LASIX ET HEPARIN INFUSING. PT HAS DENIED PAIN THROUGH DAY, STATES THAT HE DOES NOT HAVE PAIN OR SOB UNTIL HE LEAVES BED. PT HAS SPENT MOST OF SHIFT IN BED BUT HAS BEEN TO SINK TO SHAVE WITH ASSISTANCE ET WAS SEEN WALKING IN HALLWAY WITH PHYSICAL THERAPY EARLIER. USES URINAL TO URINATE. PT'S FAMILY HAS BEEN HERE TO SEE HIM. PT HAS BEEN PLEASANT OR COOPERATIVE, DENIES NEEDS. CALL LIGHT WITHIN REACH.
--- NOTE | 2021-12-17 20:15 | NUR ---
Pt. sitting up in bed. Pt. is A&OX3, assessment complete. IV to lt. ac with Heparin gtt running per orders. IV to rt. upper arm with lasix gtt running per orders. Pt. denies pain or other needs, call light within reach.
[2021-12-17 20:16] VITALS: BP 96/68; BP 96/98; PULSE 72; TEMP 97.9
[2021-12-18] VITALS (8 sets, daily range): BP systolic 81–110; BP diastolic 49–68; PULSE 70–85; TEMP 97.4–98
[2021-12-18 06:49] LABS: EOS # 0.1 K/mm3 (0.0-0.7); EOS % 2.3 % (0.0-4.0); GRAN % 66.4 % (42.2-75.2); HEMOGLOBIN 10.8 g/dl (13.5-18.0); LYMPH # 0.5 K/mm3 (1.2-3.4); LYMPH % 16.3 % (20.0-51.0); MEAN CELL VOLUME 85 fl (80.0-100.0); MEAN CORPUSCULAR HEMOGLOBIN 28 pg (27-31); MEAN CORPUSCULAR HGB CONC 32 g/dl (33.0-37.0); MONO # 0.4 K/mm3 (0.1-0.6); MONO % 13.3 % (1.7-9.3); PLATELET COUNT 80 K/mm3 (130-400); RED BLOOD COUNT 3.91 M/mm3 (4.20-5.60); REDCELL DISTRIBUTION WIDTH-CV 23.4 % (11.5-14.5)
[2021-12-18 06:55] LABS: HEMATOCRIT 33.3 % (42.0-52.0)
[2021-12-18 07:01] LABS: ALBUMIN 3.4 gm/dL (3.4-4.8); CALCIUM 9.1 mg/dL (8.4-10.2); CREATININE, serum 2.49 mg/dL (0.72-1.25); MAGNESIUM 1.9 mg/dL (1.6-2.6); PHOSPHOROUS 3.4 mg/dL (2.3-4.7); POTASSIUM 4.3 mmol/L (3.5-4.5)
--- NOTE | 2021-12-18 08:26 | NUR ---
"late entry, 12/17" Bessie, at [facility], reports that they should be good to accept and they will start working on auth. Kelly, with PT, notified SW that she worked with the patient this afternoon and he is not wanting to go to a SNF. He would rather do outpatient therapy or home health. SW to follow up with the patient and his .
--- NOTE | 2021-12-18 08:46 | NUR ---
PT'S PLATELETS ARE LOW @ 80. HEPARIN GTT CONTINUES INFUSING. PT HAS ASPIRIN ET PLAVIX SCHEDULED. NOTIFIED Esteban BARRIENTOS, STATES TO GO AHEAD ET GIVE BOTH MEDICATIONS.
--- NOTE | 2021-12-18 10:58 | NUR ---
PT is recommending that the patient is safe to return home now with home health vs outpatient therapy. AMADA met with the patient to review discharge plan and discussed SNF vs outpatient therapy vs home health. The patient states he does not want to go to a facility and would prefer to return home with outpatient therapy at [facility]. AMADA contacted the patient's , Yuko, and reviewed the above with her. Yuko states that she was a General Claims Agent and is supportive of his decision. AMADA contacted [facility] and secured the patient a PT appointment on 12/24 at 1230 with OT to follow. AMADA notified the community engagement coordinator of the appointment. AMADA will need to fax the patient's orders to [facility] [phone]. AMADA updated Bessie at [facility]. *Discharge plan: home with and outpatient OT/PT*
--- NOTE | 2021-12-18 11:30 | NUR ---
PT IS RESTING QUIETLY IN BED, DENIES PAIN OR NEEDS. IV LASIX ET HEPARIN INFUSING. PT WAS ASSISTED TO TAKE A SHOWER THIS MORNING ET LINENS WERE CHANGED. CALL LIGHT WITHIN REACH.
--- NOTE | 2021-12-18 20:43 | NUR ---
Patient assessed around 1919. Alert and oriented, and able to make needs known. Denies having pain and discomfort. Peripheral IV sites to left AC and right upper arm. Has Lasix drip and Heparin drips running per orders. Denies SOB and dyspnea, including with exertion. LS CTA. HRR. Telemetry in place. 1+ edema BLE. Voices no questions, needs, or concerns at this time. In bed with call light within reach. Continues to use bedside urinal.
[2021-12-19 04:51] VITALS: BP 103/67; PULSE 75; TEMP 98
--- NOTE | 2021-12-19 05:30 | NUR ---
Patient continues on Heparin and Lasix drips per orders. Good urine output. Voices no questions, needs, or concerns at this time. In bed with call light within reach.
[2021-12-19 05:43] LABS: EOS # 0.1 K/mm3 (0.0-0.7); EOS % 2.3 % (0.0-4.0); GRAN # 1.9 K/mm3 (1.4-6.5); GRAN % 63.3 % (42.2-75.2); HEMOGLOBIN 10.6 g/dl (13.5-18.0); LYMPH # 0.5 K/mm3 (1.2-3.4); LYMPH % 15.4 % (20.0-51.0); MEAN CELL VOLUME 82 fl (80.0-100.0); MEAN CORPUSCULAR HEMOGLOBIN 27 pg (27-31); MEAN CORPUSCULAR HGB CONC 33 g/dl (33.0-37.0); MONO # 0.5 K/mm3 (0.1-0.6); MONO % 17.7 % (1.7-9.3); PLATELET COUNT 99 K/mm3 (130-400); RED BLOOD COUNT 3.88 M/mm3 (4.20-5.60)
[2021-12-19 06:02] LABS: ALBUMIN 3.2 gm/dL (3.4-4.8); CREATININE, serum 2.3 mg/dL (0.72-1.25); MAGNESIUM 1.8 mg/dL (1.6-2.6); PHOSPHOROUS 3.6 mg/dL (2.3-4.7); POTASSIUM 3.4 mmol/L (3.5-4.5)
[2021-12-19 06:05] LABS: HEMATOCRIT 31.8 % (42.0-52.0)
--- NOTE | 2021-12-19 06:06 | NUR ---
HepXa back at 0.24. Changed Heparin drip to 950 units/hr from 800 units/hr, and order placed to recheck level at 1200 per protocol.
[2021-12-19 07:20] VITALS: BP 106/62; PULSE 75; TEMP 98.6
--- NOTE | 2021-12-19 08:34 | NUR ---
PT IS IN BED, HAS ORDERED BREAKFAST ET REQUESTS A LAXATIVE. MILK OF MAG ADMINISTERED. PT STATES THAT HE HAS NOT HAD BUT A VERY SMALL BM SINCE HE HAS BEEN HERE ET FEELS CONSTIPATED. PT DENIES PAIN @ THIS TIME BUT STATES THAT HE DOES HAVE OCCASIONAL PAINS IN HIS ANKLES, ALSO DENIES ANY SOB. PT IS ENCOURAGED TO DO LEG EXERCISES IN BED. PT DENIES OTHER NEEDS. CALL LIGHT WITHIN REACH.
--- NOTE | 2021-12-19 08:42 | NUR ---
REPORTED BY ACCOUNTING PROFESSIONAL THAT ULTRASOUND WILL COME TO DO DOPPLERS ON PT TODAY.
[2021-12-19 10:53] VITALS: BP 97/60; PULSE 74; TEMP 97.8
[2021-12-19 15:53] VITALS: BP 93/59; PULSE 73; TEMP 98
--- NOTE | 2021-12-19 18:16 | NUR ---
PT'S FAMILY IN ROOM @ THIS TIME. PT REPORTS HAVING A LARGE BM EARLIER IN DAY. LASIX ET HEPARIN GTTS HAVED BEEN DCED. PT DENIES NEEDS. CALL LIGHT WITHIN REACH.
[2021-12-19 19:40] VITALS: BP 98/62; PULSE 73; TEMP 98.1
--- NOTE | 2021-12-19 21:47 | NUR ---
Patient assessed around 2039. Alert and oriented, and able to make needs known. Denies pain and discomfort. Receiving scheduled IV Lasix to peripheral INT to right upper arm. Patient with clear yellow urine. Denies SOB and dyspnea. LS CTA. 1+ edema BLE. Voices no questions, needs, or concerns at this time. In bed with call light within reach.
[2021-12-20 00:28] VITALS: BP 87/63; PULSE 70; TEMP 97.5
[2021-12-20 04:37] VITALS: BP 120/73; PULSE 73; TEMP 98.3
--- NOTE | 2021-12-20 05:36 | NUR ---
Patient has denied having pain and discomfort this shift. Continues to have good urine output, and documented. Voices no questions, needs, or concerns at this time. In bed with call light within reach.
[2021-12-20 06:43] LABS: BASO % 0.6 % (0.0-2.0); EOS # 0.1 K/mm3 (0.0-0.7); EOS % 2.7 % (0.0-4.0); GRAN # 2.2 K/mm3 (1.4-6.5); GRAN % 64.6 % (42.2-75.2); HEMOGLOBIN 11.6 g/dl (13.5-18.0); LYMPH # 0.5 K/mm3 (1.2-3.4); LYMPH % 16.2 % (20.0-51.0); MEAN CELL VOLUME 82 fl (80.0-100.0); MEAN CORPUSCULAR HEMOGLOBIN 27 pg (27-31); MEAN CORPUSCULAR HGB CONC 33 g/dl (33.0-37.0); MONO # 0.5 K/mm3 (0.1-0.6); MONO % 15.9 % (1.7-9.3); PLATELET COUNT 85 K/mm3 (130-400); RED BLOOD COUNT 4.28 M/mm3 (4.20-5.60); REDCELL DISTRIBUTION WIDTH-CV 22.7 % (11.5-14.5)
[2021-12-20 06:57] LABS: ALBUMIN 3.4 gm/dL (3.4-4.8); CALCIUM 9.4 mg/dL (8.4-10.2); CREATININE, serum 2.26 mg/dL (0.72-1.25); MAGNESIUM 2.1 mg/dL (1.6-2.6); PHOSPHOROUS 2.9 mg/dL (2.3-4.7); POTASSIUM 4.1 mmol/L (3.5-4.5)
[2021-12-20 07:04] VITALS: BP 97/60; PULSE 75; TEMP 97.6
--- NOTE | 2021-12-20 11:09 | NUR ---
SW attended clinical rounds. The patient is to tentatively discharge back home with his today, 12/20, pending cardiology's recs; with outpatient PT/OT at [facility]. SW and AMADA student met with the patient and presented and read the IM form outloud to him. The patient verbalized understanding and agreement to discharge. He gave SW approval to sign the form on his behalf. SW student provided him with a copy. SW to fax the patient's orders to [facility] if does discharge, and once orders are finalized.
[2021-12-20 11:22] VITALS: BP 90/55; PULSE 73; TEMP 97.8
[2021-12-20] MEDS ORDERED: DEMADEX 20MG20 M1 PO (13:42)
--- NOTE | 2021-12-20 15:47 | NUR ---
PT DISCHARGE TEACHING COMPLETE. IVS REMOVED. INFORMATION GIVEN ABOUT MEDICATIONS AND FOLLOW UP APPOINTMENTS. NO OTHER CONCERNS AT THIS TIME
== END 2021-12-20 16:44 | disposition home or self-care (01) | DRG 291 ==
LOC: COL.ER 14:32 → SURG 17:14
PROVIDERS: Internal Medicine Nephrology; Nurse Practitioner Primary Care; ADMIT Internal Medicine
DX: I13.0 Hypertensive heart and chronic kidney disease with heart failure and stage 1 through stage 4 chronic kidney disease, or unspecified chronic kidney disease (principal); I50.23 Acute on chronic systolic (congestive) heart failure; N17.9 Acute kidney failure, unspecified; D61.818 Other pancytopenia; E87.2 Acidosis; I48.20 Chronic atrial fibrillation, unspecified; I48.92 Unspecified atrial flutter; I25.10 Atherosclerotic heart disease of native coronary artery without angina pectoris; I27.20 Pulmonary hypertension, unspecified; E78.5 Hyperlipidemia, unspecified; I73.9 Peripheral vascular disease, unspecified; K21.9 Gastro-esophageal reflux disease without esophagitis; E87.5 Hyperkalemia; E03.9 Hypothyroidism, unspecified; N18.9 Chronic kidney disease, unspecified; D64.9 Anemia, unspecified; E87.6 Hypokalemia; Z95.1 Presence of aortocoronary bypass graft; Z87.891 Personal history of nicotine dependence; Z95.810 Presence of automatic (implantable) cardiac defibrillator
CPT/HCPCS: 99223-AI; 99232-AI; 99233-AI; 99239; A9540; A9567; J1644; J1940

== ENCOUNTER 2022-04-20 19:26 | Inpatient (IN) | payer MEDICARE ==
[~2022-04-20] VITALS: Ht 175.3 cm; Wt 80.6 kg
[~2022-04-20 19:26] MED LIST changes: +ALDACTONE 25MG25 M1 PO; +BACTRIM DS 8001 TAB PO; +PACERONE200 MG PO; +VITAMIN D 400400 IU PO; +VITAMIN D 50,1.25 MG
[2022-04-20 20:17] LABS: EOS # 0.1 K/mm3 (0.0-0.7); EOS % 2.6 % (0.0-4.0); GRAN % 75.9 % (42.2-75.2); HEMOGLOBIN 12.4 g/dl (13.5-18.0); LYMPH # 0.4 K/mm3 (1.2-3.4); LYMPH % 10.5 % (20.0-51.0); MEAN CELL VOLUME 89 fl (80.0-100.0); MEAN CORPUSCULAR HEMOGLOBIN 30 pg (27-31); MEAN CORPUSCULAR HGB CONC 34 g/dl (33.0-37.0); MONO # 0.4 K/mm3 (0.1-0.6); MONO % 9.2 % (1.7-9.3); PLATELET COUNT 78 K/mm3 (130-400); RED BLOOD COUNT 4.14 M/mm3 (4.20-5.60); REDCELL DISTRIBUTION WIDTH-CV 22.1 % (11.5-14.5)
[2022-04-20 20:18] LABS: HEMATOCRIT 36.9 % (42.0-52.0)
[2022-04-20 20:36] LABS: ALBUMIN 3.5 gm/dL (3.4-4.8); BILIRUBIN,TOTAL 3.1 mg/dL (0.2-1.2); CALCIUM 9.3 mg/dL (8.4-10.2); CREATININE, serum 1.82 mg/dL (0.72-1.25); POTASSIUM 4.3 mmol/L (3.5-4.5); TOTAL PROTEIN 7.4 gm/dL (6.2-8.1)
[2022-04-20 20:46] LABS: TROPONIN-I 0.15 ng/mL (0.00-0.033)
[2022-04-20 23:55] VITALS: BP 129/69; PULSE 75; TEMP 98
--- NOTE | 2022-04-21 03:19 | NUR ---
PATIENT UP TO ROOM 324. ALERT AND ORIENTED. AMBULATED X1 ASSIST FROM STRETCHER TO BED. PATIENT HAD SOILED HIS CLOTHES, NEW GOWN IN PLACE. MED RX COMPLETED. ADMISSION ASSESSMENTS COMPLETED. PROVIDED PATIENT WITH SANDWICH BOX AND WATER, EDUCATED HIM ON HIS FLUID RESTRICTION. PATIENT IN AGREEANCE WITH PLAN.
[2022-04-21 04:05] VITALS: BP 130/75; PULSE 76; TEMP 98.7
[2022-04-21 07:22] LABS: EOS # 0.1 K/mm3 (0.0-0.7); EOS % 3.7 % (0.0-4.0); GRAN # 2.1 K/mm3 (1.4-6.5); HEMOGLOBIN 11.2 g/dl (13.5-18.0); LYMPH # 0.4 K/mm3 (1.2-3.4); LYMPH % 14.3 % (20.0-51.0); MEAN CELL VOLUME 88 fl (80.0-100.0); MEAN CORPUSCULAR HEMOGLOBIN 29 pg (27-31); MEAN CORPUSCULAR HGB CONC 33 g/dl (33.0-37.0); MONO # 0.3 K/mm3 (0.1-0.6); PLATELET COUNT 73 K/mm3 (130-400); RED BLOOD COUNT 3.81 M/mm3 (4.20-5.60); REDCELL DISTRIBUTION WIDTH-CV 21.5 % (11.5-14.5)
[2022-04-21 07:32] VITALS: BP 127/66; PULSE 76; TEMP 98.1
[2022-04-21 07:35] LABS: HEMATOCRIT 33.5 % (42.0-52.0)
[2022-04-21 07:38] LABS: CALCIUM 8.8 mg/dL (8.4-10.2); CREATININE, serum 1.67 mg/dL (0.72-1.25); MAGNESIUM 2.1 mg/dL (1.6-2.6)
[2022-04-21 11:03] LABS: PARTIAL THROMBOPLASTIN TIME 34.1 SECONDS (26.0-37.0)
[2022-04-21 12:19] VITALS: BP 111/67; PULSE 71; TEMP 97.8
--- NOTE | 2022-04-21 15:44 | NUR ---
SW met with pt to complete intake. PT lives at home with his , Yuko @ [phone]. Pt is independent on all ADLs and uses a walker sometimes for long distance. Pt uses 2L oxygen at night. Pt pcp is and taiwo Bejarano and gets medications from [facility] and has no trouble obtaining cost. Pt not interested in DPOA-HC and his next of kin is his . No other needs at this time. DC: Home w/ and OP PT
[2022-04-21 16:42] VITALS: BP 111/69; PULSE 73; TEMP 97.8
--- NOTE | 2022-04-21 18:26 | NUR ---
RECIEVED CALL FROM LAB THAT PATIENTS XA LEVEL IS 0.94. HEPARIN INFUSION STOPPED PER PROTOCOL. WILL NOTIFIY NIGHT NURSE TO RESTART DECREASE BY 2ML/HR AND RESTART AT 1925 PER PROTOCOL, AND REDRAW 6 HOURS AFTER RESTART.
[2022-04-21 20:58] VITALS: BP 97/58; PULSE 76; TEMP 97.7
--- NOTE | 2022-04-21 21:10 | NUR ---
HEPARIN ON HOLD AT SHIFT CHANGE DUE TO LEVEL. RESTARTED AT 1930 AND DECREASED BY 2. 1250 UNIT NEW RATE. NEXT HEP XA AT 0130. PT DENIES CHEST PAIN, OCC SOA. LASIX GIVEN AND RT PLACED ON 2L.
[2022-04-22 00:31] VITALS: BP 119/66; PULSE 109; TEMP 98.5
--- NOTE | 2022-04-22 02:19 | NUR ---
HEP XA 0.86. HEP STOPPED FOR 1 HR THEN RECHECK IN 6HRS. HEP XA DUE NEXT 1030.
[2022-04-22 04:41] VITALS: BP 121/73; PULSE 74; TEMP 98.5
--- NOTE | 2022-04-22 05:44 | NUR ---
RESTED THROUGH THE NIGHT WITHOUT INCIDENT. HEP INFUSING AT 1050UNIT. AM MEDS. CALL LIGHT WI REACH.
[2022-04-22 07:42] VITALS: BP 125/72; PULSE 74; TEMP 97.6
[2022-04-22 10:08] LABS: CALCIUM 8.9 mg/dL (8.4-10.2); CREATININE, serum 1.88 mg/dL (0.72-1.25); MAGNESIUM 2.1 mg/dL (1.6-2.6); POTASSIUM 3.7 mmol/L (3.5-4.5)
[2022-04-22 12:59] VITALS: BP 111/66; PULSE 72; TEMP 97.4
[2022-04-22 16:44] VITALS: BP 121/70; PULSE 85; TEMP 98.9
[2022-04-22 20:02] VITALS: BP 117/54; PULSE 69; TEMP 97.5
[2022-04-23 00:39] VITALS: BP 97/59; PULSE 69; TEMP 97.6
--- NOTE | 2022-04-23 01:30 | NUR ---
PATIENT IN BED ON ROOM ENTRY. EYES CLOSED BUT AWAKENS TO SPEECH. HS MEDS PER EMAR. NEW 22 G IV STARTED TO R FA FOR ADDITIONAL IV MEDS SINCE HEP GTT IS INFUSING TO OTHER IV SITE. HEP XA AT 2230 WAS 0.54, NO CHANGE TO RATE AT THIS TIME. NEXT DRAW AT 0430.
[2022-04-23 04:31] VITALS: BP 120/70; PULSE 71; TEMP 97.8
[2022-04-23 04:49] LABS: HEMOGLOBIN 10.8 g/dl (13.5-18.0); MEAN CELL VOLUME 87 fl (80.0-100.0); MEAN CORPUSCULAR HEMOGLOBIN 30 pg (27-31); MEAN CORPUSCULAR HGB CONC 34 g/dl (33.0-37.0); PLATELET COUNT 72 K/mm3 (130-400); REDCELL DISTRIBUTION WIDTH-CV 21.1 % (11.5-14.5)
[2022-04-23 05:00] LABS: HEMATOCRIT 31.4 % (42.0-52.0)
[2022-04-23 07:28] VITALS: BP 133/74; PULSE 72; TEMP 97.6
[2022-04-23] MEDS ORDERED: ASPIRIN E.C. 8181 MG PO (08:44)
--- NOTE | 2022-04-23 09:43 | NUR ---
The patient is to tentatively discharge today. AMADA met with the patient to review discharge plan and discuss PT's recommendation for outpatient PT. The patient states that he is not interested in doing outpatient therapy. He states that he has home exercise programs from past outpatient PT and he can do these at home. He had no concerns for SW. AMADA presented and read the IM form outloud to the patient. The patient verbalized understanding and of agreement to discharge today. He signed the form and AMADA provided him with a copy. No additional needs at this time.
--- NOTE | 2022-04-23 10:01 | NUR ---
Reviewed education for chronic heart failure. Reviewed [facility] CHF educational booklet, with emphasis on daily weights, obtaining dry weights, monitoring for edema, shortness of breath, decreased endurance, or feeling full when eating less. Reviewed importance of medication compliance with all prescribed medications and when to call your medical provider (CHF Zones). Patient verbalized understanding. Patient s EF is 30-35% which does qualify for Cardiac Rehab. Staff offered to send Referral to [facility]- patient's local facility - however patient declined at this time.
[2022-04-23 11:21] LABS: CALCIUM 8.3 mg/dL (8.4-10.2); CREATININE, serum 1.64 mg/dL (0.72-1.25); POTASSIUM 3.8 mmol/L (3.5-4.5)
[2022-04-23 11:24] VITALS: BP 122/62; PULSE 69; TEMP 97.7
[2022-04-23] MEDS ORDERED: ALDACTONE 25MG25 M1 PO (14:19)
--- NOTE | 2022-04-23 15:07 | NUR ---
An exercise oximetry was ordered. The patient qualified for continuous home oxygen. The patient informed staff that he has portable oxygen at home. AMADA attempted to contact the patient's , Yuko, to clarify. AMADA left her a voicemail. AMADA met with the patient. The patient states that he receives his oxygen from [facility]. AMADA contacted Marli at [facility] to verify what orders they have for the patient. Marli reports that the patient has continuous home oxygen. No additional needs at this time.
[2022-04-23 16:00] VITALS: BP 117/65; PULSE 72; TEMP 97.7
--- NOTE | 2022-04-23 18:22 | NUR ---
PATIENT LEFT IN STABLE CONDITION. WITH TWO FAMILY MEMBERS WITH OXYGEN ON HIS PERSON PORTABLE TANK. TAKEN TO [facility] ENTRANCE WITH FAMILY AND PCT VIA WHEELCHAIR EARLIER
== END 2022-04-23 16:45 | disposition home or self-care (01) | DRG 291 ==
LOC: COL.ER 19:26 → SURG 22:48
PROVIDERS: Internal Medicine; Internal Medicine Interventional Cardiology; Personal Emergency Response Attendant; Student in an Organized Health Care Education/Training Program; ADMIT Internal Medicine
DX: I13.0 Hypertensive heart and chronic kidney disease with heart failure and stage 1 through stage 4 chronic kidney disease, or unspecified chronic kidney disease (principal); I50.23 Acute on chronic systolic (congestive) heart failure; I48.20 Chronic atrial fibrillation, unspecified; N17.9 Acute kidney failure, unspecified; I48.92 Unspecified atrial flutter; I25.10 Atherosclerotic heart disease of native coronary artery without angina pectoris; I27.20 Pulmonary hypertension, unspecified; K21.9 Gastro-esophageal reflux disease without esophagitis; N18.9 Chronic kidney disease, unspecified; E78.5 Hyperlipidemia, unspecified; I73.9 Peripheral vascular disease, unspecified; E03.9 Hypothyroidism, unspecified; R53.81 Other malaise; R77.8 Other specified abnormalities of plasma proteins; D63.1 Anemia in chronic kidney disease; D69.6 Thrombocytopenia, unspecified; Z95.1 Presence of aortocoronary bypass graft; Z95.810 Presence of automatic (implantable) cardiac defibrillator; Z99.81 Dependence on supplemental oxygen; Z79.02 Long term (current) use of antithrombotics/antiplatelets; Z79.890 Hormone replacement therapy; Z87.891 Personal history of nicotine dependence
CPT/HCPCS: J1644; J1940

== ENCOUNTER 2022-06-19 10:06 | Day surgery (SDC) | payer MEDICARE ==
[~2022-06-19] VITALS: Ht 172.7 cm; Wt 77.4 kg
[~2022-06-19 10:06] MED LIST changes: +ASPIRIN E.C. 8181 MG PO
[2022-06-19 11:25] VITALS: BP 131/74; PULSE 76; TEMP 97.1
[2022-06-19 14:35] VITALS: BP 141/81; PULSE 69; TEMP 97.2
--- NOTE | 2022-06-19 14:35 | NUR ---
PT TO BAY 8 PER CART FROM PACU. REPORT RECEIVED. VS OBTAINED. CALL LIGHT WITHIN REACH. PT DENIES ANY NEEDS AT THIS TIME. PT RESTING.
[2022-06-19 14:50] VITALS: BP 134/78; PULSE 68
[2022-06-19 15:05] VITALS: BP 142/80; PULSE 68
[2022-06-19 15:20] VITALS: BP 136/71; PULSE 69
[2022-06-19 15:35] VITALS: BP 138/73; PULSE 69
--- NOTE | 2022-06-19 16:30 | NUR ---
1505-PT TOLERATING WATER, JELLO, AND PUDDING. DENIES ANY NEEDS. 1600-IV DC'D AT THIS TIME. 1620-DISCHARGE EDUCATION COMPLETED WITH PT AND HIS . VERBALIZED UNDERSTANDING OF HOME AND FOLLOW UP CARE. ALL QUESTIONS ANSWERED. DISCHARGE PAPERWORK GIVEN TO PT. 1630-PT OFF UNIT PER WHEELCHAIR. PT DISCHARGED TO HOME WITH PER PERSONAL VEHICLE.
== END 2022-06-19 16:30 | disposition home or self-care (01) ==
LOC: SDCO 10:06
DX: J38.2 Nodules of vocal cords (principal); Z87.891 Personal history of nicotine dependence; Z99.81 Dependence on supplemental oxygen
CPT/HCPCS: J0171; J0330; J1100; J2405; J3010; J7120